=== PATIENT | female | born 1980 | race African-American/Black ===

== ENCOUNTER 2021-01-13 01:46 | Inpatient (IN) ==
[2021-01-13] MEDS ORDERED: BUTORPHANOL 2 MG/ML VIAL IV PRN (03:04)
[2021-01-13] MEDS ORDERED: ONDANSETRON 4 MG/2 ML VIAL IV PRN ×3 (03:04→18:38)
[2021-01-13] MEDS ORDERED: MEPERIDINE 50 MG/1 ML VIAL IV PRN (03:04)
[2021-01-13] MEDS ORDERED: NIFEdipine 10 MG CAPSULE PO ONE ×2 (03:07→04:25)
[2021-01-13] MEDS ORDERED: OXYTOCIN/LR 20 UNIT/1,000 ML BAG IV SCH (03:30)
[2021-01-13 03:33] LABS: Basophils # 0.1 10*3/uL (0.0-0.2); Basophils % 0.4 % (0.0-0.8); Eosinophils # 0.3 10*3/uL (0.0-0.87); Eosinophils % 2.7 % (0.00-10.9); Hematocrit 29.3 VOL% (35.7-47.0); Hemoglobin 9.4 GM/DL (12.0-16.0); Immature Granulocytes % 1.2 %; Immature Granulocytes Absolute 0.15 #; Lymphocytes # 2.8 10*3/uL (1.4-4.0); Lymphocytes % 23.4 % (21.3-54.2); Mean Corpuscular HGB Conc 32.1 GM/DL (32-36); Mean Corpuscular Volume 83.5 FL (87-102); Mean Platelet Volume 10.5 FL (9.6-12.0); Monocytes % 9.3 % (1.7-12.7); Platelet Count 202 T/CUMM (130-400); Red Blood Count 3.51 MC/CUMM (3.8-5.5); Red Cell Distribution Width 17.1 % (9.3-17.3)
[2021-01-13] MEDS ORDERED: ACETAMINOPHEN 500 MG TABLET PO ONE (03:39)
[2021-01-13 03:50] LABS: Alanine Aminotransferase 15 U/L (13-56); Albumin 2.6 G/DL (3.4-5.0); Alkaline Phosphatase 101 U/L (45-117); Aspartate Amino Transferase 15 U/L (0-37); Bilirubin,Total < 0.39 MG/DL (0.2-1.0); Blood Urea Nitrogen 14 MG/DL (7-18); Carbon Dioxide 24 MMOL/L (21-32); Estimated Glom Filtration Rate 162 ML/MIN; Glucose 79 MG/DL (74-106); Osmolality,Calculated 274.7 MOS/KG (273-304); Potassium 3.9 MMOL/L (3.5-5.1); Sodium 138 MMOL/L (136-145); Total Protein 6.9 G/DL (6.4-8.2)
[2021-01-13] MEDS: LACTATED RINGERS 1,000 ML IV SCH ×3 (03:56→15:47)
[2021-01-13 04:39] LABS: INR 0.9; PT Patient Result 10.3 SECS (10.5-12.0)
[2021-01-13] MEDS: CLINDAMYCIN INJ 900 MG/50 ML PREMIX IV SCH ×2 (05:10→15:52)
[2021-01-13] MEDS ORDERED: PROMETHAZINE 25 MG/1 ML VIAL IM ONE (07:27)
[2021-01-13] MEDS ORDERED: diphenhydrAMINE 50 MG/1 ML VIAL IV PRN (07:27)
[2021-01-13] MEDS ORDERED: NALOXONE 0.4 MG/ML VIAL IV PRN (07:27)
[2021-01-13] MEDS ORDERED: ePHEDrine 50 MG/ML VIAL IV PRN (07:27)
[2021-01-13] MEDS ORDERED: hydrOXYzine HCL 25 MG/1 ML VIAL IM PRN (07:27)
[2021-01-13] MEDS ORDERED: CITRIC ACID/SODIUM CITRATE 30 ML UDCUP PO ONE (07:28)
[2021-01-13] MEDS ORDERED: FAMOTIDINE 20 MG/2 ML VIAL IV ONE (07:28)
[2021-01-13 07:58] LABS: Protein/Creatinine Ratio,Urine 0.6 RATIO
[2021-01-13 11:29] LABS: Bilirubin,Urine Negative (Negative); Blood, Urine Negative (Negative); Glucose,Urine (UA) Negative (Negative); Ketones,Urine Negative (Negative); Mucus,Urine Occasional /LPF (Occasional); Nitrite,Urine Negative (Negative); Protein,Urine Negative; RBC,Urine <1 /HPF (0-4); Squamous Epithelial Cell,Urine Occasional /HPF (0-10); Urine Appearance CLEAR (Clear); Urine Color Straw (Yellow); Urine Specific Gravity 1.013 (1.001-1.035); Urine Urobilinogen < 2.0 EU/DL (0.2-1.0)
[2021-01-13] MEDS: fentaNYL 2 MCG/ROPIV 0.2% EPID 100 ML EPIDURAL SCH (11:46)
[2021-01-13] MEDS: LABETALOL 100 MG TABLET PO SCH (15:48)
[2021-01-13] MEDS ORDERED: TRANEXAMIC ACID 1,000 MG/10 ML VIAL ONE (17:42)
[2021-01-13] MEDS ORDERED: OXYTOCIN/LR 0 UNIT/0 ML BAG IV ONE (17:42)
[2021-01-13] MEDS ORDERED: METHYLERGONOVINE 0.2 MG/1 ML AMP ONE (17:42)
[2021-01-13] MEDS ORDERED: miSOPROStoL 200 MCG TABLET ONE (17:42)
[2021-01-13] MEDS ORDERED: CARBOPROST TROMETHAMINE 250 MCG/ML AMP IM ONE (17:43)
[2021-01-13] MEDS ORDERED: OXYTOCIN/LR 30 UNIT/1,000 ML BAG IV ONE (17:50)
[2021-01-13 18:10] LABS: Cord Venous Blood HCO3 21.4 MMOL/L; Cord Venous Blood PCO2 35.7 MMHG; Cord Venous Blood PO2 45.7 MMHG
[2021-01-13] MEDS ORDERED: WITCH HAZEL PADS 100/JAR TOP PRN (18:38)
[2021-01-13] MEDS ORDERED: ACETAMINOPHEN 325 MG TABLET PO PRN (18:38)
[2021-01-13] MEDS ORDERED: LANOLIN 50% CREAM 0.3 OZ TUBE TOP PRN (18:38)
[2021-01-13] MEDS ORDERED: BENZOCAINE 20%/MENTHOL 0.5% SPRAY 56 GM CAN TOP PRN (18:38)
[2021-01-13] MEDS ORDERED: BISACODYL 10 MG SUPP RECTAL PRN (18:38)
[2021-01-13] MEDS ORDERED: MEASLES/MUMPS/RUBELLA VACCINE 0.5 ML VIAL SUBCUT ONE (18:38)
[2021-01-13] MEDS ORDERED: oxyCODONE/ACETAMINOPHEN 5-325 MG TABLET PO PRN (18:38)
[2021-01-13] MEDS ORDERED: RHO(D) IMMUNE GLOBULIN 300 MCG SYRINGE IM ONE (18:38)
[2021-01-13] MEDS ORDERED: DIPH/TET/ACEL PERT BOOSTER VACCINE 0.5 ML VIAL IM ONE (18:38)
[2021-01-13] MEDS ORDERED: OXYTOCIN/LR 20 UNIT/1,000 ML BAG IV ONE (18:38)
[2021-01-13] MEDS ORDERED: HYDROCORTISONE 2.5% RECTAL CREAM 30 GM TUBE TOP PRN (18:38)
[2021-01-13] MEDS: DOCUSATE SODIUM 100 MG CAPSULE PO SCH ×2 (23:36→23:39)
[2021-01-13] MEDS: IBUPROFEN 800 MG TABLET PO PRN (23:39)
[2021-01-14] MEDS: oxyCODONE/ACETAMINOPHEN 5-325 MG TABLET PO PRN ×2 (01:07→19:31)
[2021-01-14 06:07] LABS: Basophils % 0.3 % (0.0-0.8); Eosinophils # 0.3 10*3/uL (0.0-0.87); Eosinophils % 1.6 % (0.00-10.9); Immature Granulocytes Absolute 0.15 #; Lymphocytes # 2.2 10*3/uL (1.4-4.0); Lymphocytes % 14.1 % (21.3-54.2); Mean Corpuscular HGB Conc 31.3 GM/DL (32-36); Mean Platelet Volume 10.3 FL (9.6-12.0); Monocytes % 6.9 % (1.7-12.7); Neutrophils % 76.1 % (38.7-73.9); Platelet Count 216 T/CUMM (130-400); Red Blood Count 3.81 MC/CUMM (3.8-5.5); Red Cell Distribution Width 16.8 % (9.3-17.3); White Blood Count 15.7 T/CUMM (4-12)
[2021-01-14] MEDS: DOCUSATE SODIUM 100 MG CAPSULE PO SCH ×3 (08:10→21:51)
[2021-01-14] MEDS: valACYclovir 500 MG TABLET PO SCH (11:58)
[2021-01-14] MEDS: fentaNYL 2 MCG/ROPIV 0.2% EPID 100 ML EPIDURAL SCH (13:39)
[2021-01-14] MEDS: LACTATED RINGERS 1,000 ML IV SCH (13:39)
[2021-01-14] MEDS: LABETALOL 100 MG TABLET PO SCH (13:40)
[2021-01-15 07:09] VITALS: BP 133/71
[2021-01-15] MEDS: IBUPROFEN 800 MG TABLET PO PRN (07:16)
[2021-01-15] MEDS: oxyCODONE/ACETAMINOPHEN 5-325 MG TABLET PO PRN (07:17)
[2021-01-15] MEDS: DOCUSATE SODIUM 100 MG CAPSULE PO SCH (08:20)
[2021-01-15] MEDS: valACYclovir 500 MG TABLET PO SCH (08:20)
== END 2021-01-15 12:05 | disposition home or self-care (01) | DRG 560 ==
LOC: N.LDOUT 01:46 → N.LD 01:53 → N.OB 23:25
PROVIDERS: ADMIT Obstetrics & Gynecology; ATTEND Obstetrics & Gynecology